=== PATIENT | female | born 1950 | race Caucasian/White ===

== ENCOUNTER 2017-12-04 17:58 | Emergency (ER) | payer BC, OTHER ==
[~2017-12-04] VITALS: Ht 160 cm; Wt 58.8 kg
[~2017-12-04 17:58] MED LIST: ACTONEL35 MG PO; ADULT LOW DOSE81 M1 PO; ATIVAN1 MG PO; CRESTOR20 MG PO; DILTIAZEM 24HR120 MG PO; METOPROLOL SUCC25 MG PO; ZOLOFT50 MG PO
[2017-12-04] MEDS ORDERED: PERCOCET 5/31 TABLET PO (19:56)
[2017-12-04] MEDS ORDERED: XYLOCAINE VISC100 ML PO (19:56)
[2017-12-04] MEDS ORDERED: PEN-VEE K,VEET500 MG PO (19:59)
[2017-12-04 20:28] VITALS: BP 133/64
== END 2017-12-04 20:29 | disposition home or self-care (01) ==
LOC: RME 17:58 → EME 17:58 → RME 20:29
DX: R13.10 Dysphagia, unspecified (principal); Z98.890 Other specified postprocedural states; F32.9 Major depressive disorder, single episode, unspecified; F17.200 Nicotine dependence, unspecified, uncomplicated; Z85.820 Personal history of malignant melanoma of skin; F41.9 Anxiety disorder, unspecified
CPT/HCPCS: 70360; 99281; 99284